=== PATIENT | male | born 1930 | race Caucasian/White ===

== ENCOUNTER → 2016-10-24 | Outpatient (CLI) | payer MEDICARE, OTHER ==
[~2016-10-24] MED LIST: ASPIRIN LO-DOSE81 MG PO; EXELON PATCH 99.5 MG TOP; SIMVASTATIN20 MG PO; THERAGRAN-M1 TAB PO; TOPROL XL25 MG PO; TYLENOL/COD#31 TAB PO
== END | disposition disaster alternative care site (69) ==
LOC: GAMB 15:02
DX: S79.912A Unspecified injury of left hip, initial encounter (principal); M25.552 Pain in left hip; F03.91 Unspecified dementia, unspecified severity, with behavioral disturbance; I48.2 Chronic atrial fibrillation; Z95.0 Presence of cardiac pacemaker; Z79.01 Long term (current) use of anticoagulants; Z79.899 Other long term (current) drug therapy; Z88.1 Allergy status to other antibiotic agents; W01.0XXA Fall on same level from slipping, tripping and stumbling without subsequent striking against object, initial encounter
CPT/HCPCS: A0425; A0428